=== PATIENT | male | born 1980 | race Caucasian/White ===

== ENCOUNTER 2022-01-18 09:23 | Outpatient (CLI) | payer SELFPAY ==
--- NOTE | 2022-01-18 13:35 | XRAY Report ---
PROCEDURE: Hand 3 View LT INDICATIONS: HAND JOINT PAIN TECHNIQUE: 3 views of the hand(s) acquired. COMPARISON: None FINDINGS: Bones: No fractures or dislocations. No suspicious bony lesions. Soft tissues: No suspicious soft tissue calcifications. IMPRESSION: No osseous lesion. If there are persistent symptoms or continued clinical concern for pathology, then repeat plain film radiographs (7-10 days) or advanced imaging (CT, MR, bone scan) should be consider ed for further evaluation. Reviewed by: Jaida Burns MD, PhD on 01/18/2022 1:34 PM PST Approved by: Jaida Burns MD, PhD on 01/18/2022 1:34 PM PST Station ID: [id number]
== END 2022-01-18 09:24 | disposition home or self-care (01) ==
LOC: DI 09:23
PROVIDERS: ATTEND Family Medicine
DX: M79.642 Pain in left hand (principal)